=== PATIENT | female | born 1960 | race Two or more races ===

== ENCOUNTER 2017-02-15 11:35 | Emergency (ER) | payer OTHER ==
[~2017-02-15] VITALS: Ht 167.6 cm; Wt 102.1 kg
[2017-02-15 14:10] VITALS: BP 135/75
--- NOTE | 2017-02-15 14:43 | Emergency Room Report ---
History of Present Illness General Chief Complaint: Multiple Trauma/Fall Source: Patient Present Illness HPI 56-year-old female presents emergency department complaining of 7/10 in severity pain to the right knee, right wrist, right shoulder and left-side of the lower face status post mechanical fall at work 5 days ago. Patient states she's been taking Motrin and using ice for her symptoms. Patient presents for evaluation she continues to have pain and tenderness. Patient denies loss of consciousness patient states pain is exacerbated upon weightbearing and walking in addition to palpation. Patient reports swelling and bruising to the left side of her face. Denies numbness tingling or loss of sensation or gross motor movements of the extremities, incontinence of bowel or bladder. Denies CP, Palpitations, LOC, AMS, dizziness, Changes in Vision, Sensation, paresthesias, or a sudden severe headache. Allergies: Coded Allergies: No Known Allergies (Unverified , 02/15/17) Patient History Past Medical History: see triage record Past Surgical History: none Pertinent Family History: none Now: No Reviewed Nursing Documentation: PMH: Agreed, PSxH: Agreed Nursing Documentation-PMH Past Medical History: No Stated History Review of Systems All Other Systems: negative except mentioned in HPI Physical Exam Vital Signs Date Time Temp Pulse Resp B/P Pulse Ox O2 Delivery O2 Flow Rate FiO2 02/15/17 11:58 98.1 64 15 139/79 97 Room Air Sp02 EP Interpretation: reviewed, normal General Appearance: no apparent distress, alert, GCS 15, non-toxic Head: normocephalic, other - swelling , and echymosis to the left maxilla, abrasion noted to the left side of the chin. Eyes: bilateral eye EOMI, bilateral eye PERRL, bilateral eye normal inspection ENT: hearing grossly normal, normal pharynx, no angioedema, normal voice Neck: full range of motion, no bony tend, supple/symm/no masses Respiratory: lungs clear, normal breath sounds, speaking full sentences Cardiovascular #1: regular rate, rhythm, no edema Cardiovascular #2: 2+ radial (R) Rectal: deferred Musculoskeletal: back normal, gait/station normal, normal range of motion, non- tender, swelling - swelling , and echymosis to the left maxilla, , tender - anterior right knee ttp, no obvious deformity, bruising or increased laxity, FROM, TTP to right wrist, no snuff box ttp, FROM no swelling or bruising, TTP to the right shoulder , no obvious deformity FROM with pain , swelling , and echymosis to the left maxilla, abrasion noted to the left side of the chin. Neurologic: alert, oriented x3, responsive, motor strength/tone normal, sensory intact, cerebellar normal, normal gait, speech normal Psychiatric: judgement/insight normal, memory normal, mood/affect normal Skin: normal color, no rash, warm/dry, well hydrated, other - swelling , and echymosis to the left maxilla, abrasion noted to the left side of the chin., abrasions - left chin Medical Decision Making PA Attestation Dr. Parks is my supervising Physician whom patient management has been discussed with. Diagnostic Impression: Primary Impression: Facial contusion Qualified Codes: S00.83XA - Contusion of other part of head, initial encounter Additional Impressions: Knee contusion Qualified Codes: S80.01XA - Contusion of right knee, initial encounter Shoulder contusion Qualified Codes: S40.011A - Contusion of right shoulder, initial encounter Right wrist sprain Qualified Codes: S63.501A - Unspecified sprain of right wrist, initial encounter ER Course Pt. presents to the ED c/o Right knee, shoulder and wrist pain with left sided facial pain and bruising x 5 days s/p mechanical fall at work. pt has been taking motrin. Ddx considered but are not limited to Fracture, dislocation, contusion, Sprain/ Strain/Spasm. Vital signs: are WNL, pt. is afebrile H&PE are most consistent with contusions of face and knee, will r/o fractures of shoulder, knee, wrist, and facial bones with imaging. ORDERS: - X-ray Right knee 3 views - negative for fx, Dislocation, or significant soft tissue injury, per preliminary read in ED by Dr. Nur - X-ray Right Shoulder 3 views - negative for fx, Dislocation, or significant soft tissue injury, non-acute bony free body noted - per preliminary read in ED by Dr. Nur - X-ray Right wrist 2 views - negative for fx, Dislocation, or significant soft tissue injury, per preliminary read in ED by Dr. Nur - CT Facial bones no contrast: negative for acute fractures per official radiology report. ED INTERVENTIONS: -Tylenol PO - splint - dhruv wrap DISCHARGE: At this time pt. is stable for d/c to home. Will provide printed patient care instructions, and any necessary prescriptions. Care plan and follow up instructions have been discussed with the patient prior to discharge. Last Vital Signs Date Time Temp Pulse Resp B/P Pulse Ox O2 Delivery O2 Flow Rate FiO2 02/15/17 11:58 98.1 64 15 139/79 97 Room Air Disposition: HOME, SELF-CARE Condition: Stable Scripts Hydrocodone Bit/Acetaminophen 5-325* (NORCO 5-325*) 1 Each Tablet 1 TAB ORAL Q6H Y for For Pain, #6 TAB 0 Refills Prov: Brittani Pastor 02/15/17 Ibuprofen* (MOTRIN*) 600 Mg Tablet 600 MG ORAL THREE TIMES A DAY, #30 TAB 0 Refills Prov: Brittani Pastor 02/15/17 Referrals: NOT CHOSEN IPA/MD,REFERRING (PCP) Departure Forms: Return to Work Return to Work Date: Feb 16, 2017 Work Restrictions: No Heavy Lifting, No Prolonged Standing, Desk Work Only Other Restrictions: light duty x 1 week. Patient Instructions: Contusion, [id number] Additional Instructions: Take medications as directed. Follow up with PCP in 3-5 days Return sooner to ED if new symptoms occur, or current symptoms become worse. - Please note that this Emergency Department Report was dictated using [employer] software, occasionally this can lead to erroneous entry secondary to interpretation by the dictation equipment. Brittani Pastor Feb 15, 2017 14:43
[2017-02-15] MEDS ORDERED: IBUPROFEN600 MG ORAL (14:45)
[2017-02-15] MEDS ORDERED: NORCO 5-325 TA1 EACH ORAL (14:45)
[2017-02-15 14:59] VITALS: BP 135/75
--- NOTE | 2017-02-15 15:36 | Diagnostic Imaging Report ---
Indication: PAIN Technique: 3 views of the right shoulder Comparison: none Findings: No acute fractures. No dislocations. Joint spaces are preserved. Impression:Negative
--- NOTE | 2017-02-15 15:39 | Diagnostic Imaging Report ---
Clinical Indication:PAIN Technique: 3 views of the right wrist Comparison: None Findings: No acute fractures. No dislocations. Joint spaces are preserved. Impression: Negative
--- NOTE | 2017-02-16 08:31 | Diagnostic Imaging Report ---
Indication: PAIN, trauma Technique: 3 views of the right knee Comparison: None Findings:No suprapatellar effusion. There are degenerative proliferative changes and likely narrowing of the patellofemoral joint. There are medial and lateral osteophytes as well. A small corticated ossific density projects in the lateral joint compartment on the oblique view only. No suprapatellar effusion Impression:Corticated ossific density projected in the medial joint compartment, could represent a small intra-articular loose body, acute osteochondral fracture fragment less likely Degenerative changes, as described No acute bony trauma
--- NOTE | 2017-02-16 08:31 | Diagnostic Imaging Report ---
Indications: PAIN, trauma to left side of face Technique: Spiral images obtained through the facial bones. No IV contrast utilized. Multiplanar reconstructions were generated.Total dose length product findings to mGycm. CTDIvol(s) 28mGy. Dose reduction achieved using automated exposure control Comparison: None Findings: No acute fractures. No worrisome sinus opacification. Optic globes are intact. The dentition is intact. The nasal septum is essentially midline. The included intracranial structures are unremarkable. The soft tissues are unremarkable. Impression: Negative The CT scanner at [facility] is accredited by the [employer] and the scans are performed using protocols designed to limit radiation exposure to as low as reasonably achievable to attain images of sufficient resolution adequate for diagnostic evaluation.
== END 2017-02-15 14:59 | disposition home or self-care (01) ==
LOC: EMR 12:40
DX: S00.83XA Contusion of other part of head, initial encounter (principal); S80.01XA Contusion of right knee, initial encounter; S40.011A Contusion of right shoulder, initial encounter; S00.81XA Abrasion of other part of head, initial encounter; S63.501A Unspecified sprain of right wrist, initial encounter; W19.XXXA Unspecified fall, initial encounter; Y92.219 Unspecified school as the place of occurrence of the external cause; Y99.0 Civilian activity done for income or pay
CPT/HCPCS: 29240; 29540; 70486; 99284